=== PATIENT | female | born 1960 | race Caucasian/White ===

== ENCOUNTER 2021-01-23 11:23 | Day surgery (SDCO) | payer OTHER ==
[~2021-01-23 11:23] MED LIST: ABILIFY5 MG PO; ASPIRIN EC81 MG PO; ATARAX25 MG PO; BACLOFEN 10MG T10 MG PO; BENTYL10 MG PO; BUDESONIDE EC3 MG PO; CIPRO500 MG PO; DIAZEPAM 5MG TAB5 MG PO; ETODOLAC500 MG PO; K-DUR20 MEQ PO; LEVAQUIN750 MG PO; MAG-OXIDE 400M400 MG PO; MEDROL 4MG DOSEP4 MG PO; METRONIDAZOLE500 MG PO; MIRTAZAPINE15 M1 PO; PAXIL20 MG PO; PEPCID AC20 MG PO; PERCOCET 5-3251 EACH PO; PREDNISONE5 MG PO; PRILOSEC20 MG PO; PROTONIX 40MG T40 MG PO; REQUIP1 MG PO; TRAZODONE 150M150 MG PO; VITAMIN B-121000 MC1 PO; VOLTAREN **OUT50 MG PO; XANAX0.5 MG PO; ZOFRAN8 MG PO; ZOLOFT100 MG PO
[2021-01-23 11:53] LABS: BASOPHIL 0.6 % (0-2); EOSINOPHIL 3.7 % (0-5); HCT 36.7 % (37.0-47.0); HGB 12.2 g/dl (12.5-16.0); MCH 29.1 pg (25.0-31.0); MCHC 33.2 g/dL (32.0-36.0); MCV 87.6 fL (78.0-100.0); MONOCYTE 5.2 % (0-12); MPV 8.9 fL (6.0-9.5); NRBC 0; PLT 197 K/uL (150-400); RBC 4.19 M/uL (4.20-5.40); RDW 13.2 % (11.5-14.0); WBC 9.9 K/uL (4.0-10.5)
[2021-01-23 12:03] LABS: INR 1.04 (0.9-1.2); PROTHROMBIN TIME 12.9 SECONDS (11.4-13.6)
[2021-01-23 12:09] LABS: ALBUMIN 3.5 g/dL (3.4-5.0); BILIRUBIN - TOTAL 0.3 mg/dL (0.2-1.0); BUN/CREAT RATIO (CALC) 14.3 RATIO; CREATININE 0.77 mg/dL (0.51-0.95); GLOBULIN (CALCULATION) 3.8 g/dL; POTASSIUM 4.5 mmol/L (3.5-5.1); TOTAL PROTEIN 7.3 g/dL (6.4-8.2)
[2021-01-23] MEDS ORDERED: K-DUR20 MEQ PO (17:11)
[2021-01-23] MEDS ORDERED: MAG-OXIDE 400M400 MG PO (17:12)
[2021-01-23] MEDS ORDERED: SODIUM BICARBO325 MG PO (17:13)
[2021-01-23 19:29] LABS: CORONAVIRUS 2019 SARS-COV-2 NEGATIVE (NEGATIVE); INFLUENZA A NAA NEGATIVE (NEGATIVE)
--- NOTE | 2021-01-24 00:30 | NUR ---
PT MEDICATION ABILIFY 5 MG NOT ADMINISTERED NOT LOADED AND AVAILABLE IN [facility].
[2021-01-24 06:35] LABS: HCT 35.9 % (37.0-47.0); HGB 11.9 g/dl (12.5-16.0); MCH 29.2 pg (25.0-31.0); MCHC 33.1 g/dL (32.0-36.0); MCV 88.2 fL (78.0-100.0); MPV 9.2 fL (6.0-9.5); RBC 4.07 M/uL (4.20-5.40); RDW 13.1 % (11.5-14.0); WBC 8.3 K/uL (4.0-10.5)
[2021-01-24 07:03] LABS: BUN/CREAT RATIO (CALC) 16.7 RATIO; CREATININE 0.9 mg/dL (0.51-0.95); POTASSIUM 4.8 mmol/L (3.5-5.1)
[2021-01-24] MEDS ORDERED: HABITROL14 MG TD (12:07)
[2021-01-24] MEDS ORDERED: ASPIRIN EC81 MG PO (12:07)
[2021-03-06] MEDS ORDERED: MELOXICAM15 MG PO (14:28)
[2021-06-10] MEDS ORDERED: MELOXICAM15 MG PO (14:48)
[2021-06-12] MEDS ORDERED: CELECOXIB100 MG PO (17:03)
== END 2021-01-24 12:30 | disposition home or self-care (01) ==
LOC: FER 11:23 → FMS 14:39
PROVIDERS: Emergency Medicine; ADMIT Hospitalist
DX: R07.89 Other chest pain (principal); F17.210 Nicotine dependence, cigarettes, uncomplicated; K50.90 Crohn's disease, unspecified, without complications; D64.9 Anemia, unspecified; K21.9 Gastro-esophageal reflux disease without esophagitis; I10 Essential (primary) hypertension; M19.90 Unspecified osteoarthritis, unspecified site; G89.29 Other chronic pain; M54.9 Dorsalgia, unspecified; M51.36 Other intervertebral disc degeneration, lumbar region; Z79.82 Long term (current) use of aspirin; Z79.899 Other long term (current) drug therapy; Z88.1 Allergy status to other antibiotic agents; Z88.2 Allergy status to sulfonamides; Z90.49 Acquired absence of other specified parts of digestive tract; Z20.822 Contact with and (suspected) exposure to COVID-19
CPT/HCPCS: 36415; 71045; 80048; 80053; 83735; 84484; 85025; 85610; 93005; G0378; J1650; J3475; U0002

== ENCOUNTER 2021-05-08 14:38 | Emergency (ER) | payer OTHER ==
[~2021-05-08 14:38] MED LIST changes: +HABITROL14 MG TD; +MELOXICAM15 MG PO; +SODIUM BICARBO325 MG PO
[2021-05-08 15:16] LABS: BASOPHIL 0.8 % (0-2); EOSINOPHIL 3.2 % (0-5); HCT 38.6 % (37.0-47.0); HGB 12.5 g/dl (12.5-16.0); LYMPHOCYTE 34.5 % (15-48); MCH 28.4 pg (25.0-31.0); MCHC 32.4 g/dL (32.0-36.0); MCV 87.7 fL (78.0-100.0); MONOCYTE 5.4 % (0-12); NEUTROPHIL 55.5 % (41-80); NRBC 0; PLT 182 K/uL (150-400); RDW 13.9 % (11.5-14.0); WBC 11.7 K/uL (4.0-10.5)
[2021-05-08 15:33] LABS: ALBUMIN 3.7 g/dL (3.4-5.0); BILIRUBIN - TOTAL 0.4 mg/dL (0.2-1.0); BUN/CREAT RATIO (CALC) 16.8 RATIO; CREATININE 1.01 mg/dL (0.51-0.95); GLOBULIN (CALCULATION) 3.8 g/dL; INR 1.05 (0.9-1.2); POTASSIUM 4.2 mmol/L (3.5-5.1); PROTHROMBIN TIME 13.1 SECONDS (11.8-13.4); PTT 21.4 SECONDS (24.4-34.7); TOTAL PROTEIN 7.5 g/dL (6.4-8.2)
[2021-06-10] MEDS ORDERED: MELOXICAM15 MG PO (14:48)
== END 2021-05-08 18:25 | disposition home or self-care (01) ==
LOC: FER 14:38
PROVIDERS: Emergency Medicine
DX: R07.89 Other chest pain (principal); N18.9 Chronic kidney disease, unspecified; K21.9 Gastro-esophageal reflux disease without esophagitis; F17.210 Nicotine dependence, cigarettes, uncomplicated; Z90.49 Acquired absence of other specified parts of digestive tract; Z90.710 Acquired absence of both cervix and uterus; Z88.2 Allergy status to sulfonamides; Z88.1 Allergy status to other antibiotic agents
CPT/HCPCS: 36415; 71045; 80053; 84484; 85025; 85610; 85730; 93005; J2270; J2405; J7030

== ENCOUNTER 2021-10-27 16:26 | Emergency (ER) | payer OTHER ==
[~2021-10-27 16:26] MED LIST changes: +CELECOXIB100 MG PO
[2021-10-27 17:13] LABS: BASOPHIL 0.7 % (0-2); EOSINOPHIL 3.9 % (0-5); HCT 38.5 % (37.0-47.0); HGB 12.4 g/dl (12.5-16.0); LYMPHOCYTE 34.6 % (15-48); MCH 26.2 pg (25.0-31.0); MCHC 32.2 g/dL (32.0-36.0); MCV 81.4 fL (78.0-100.0); MONOCYTE 4.7 % (0-12); MPV 8.9 fL (6.0-9.5); NEUTROPHIL 55.8 % (41-80); NRBC 0; PLT 189 K/uL (150-400); RBC 4.73 M/uL (4.20-5.40); WBC 11.5 K/uL (4.0-10.5)
[2021-10-27 17:35] LABS: BUN/CREAT RATIO (CALC) 17.9 RATIO; CREATININE 1.06 mg/dL (0.51-0.95); POTASSIUM 4.3 mmol/L (3.5-5.1)
[2021-10-27 18:49] LABS: CORONAVIRUS 2019 SARS-COV-2 NEGATIVE (NEGATIVE); INFLUENZA A NAA NEGATIVE (NEGATIVE)
[2021-10-27] MEDS ORDERED: AZITHROMYCIN250 MG PO (19:48)
[2021-10-27] MEDS ORDERED: PREDNISONE 20MG20 MG PO (19:48)
== END 2021-10-27 20:30 | disposition home or self-care (01) ==
LOC: FER 16:26
PROVIDERS: Internal Medicine
DX: J98.8 Other specified respiratory disorders (principal); R07.89 Other chest pain; E11.9 Type 2 diabetes mellitus without complications; Z79.84 Long term (current) use of oral hypoglycemic drugs; F17.210 Nicotine dependence, cigarettes, uncomplicated; Z20.822 Contact with and (suspected) exposure to COVID-19
CPT/HCPCS: 36415; 71045; 80048; 84484; 85025; 93005; J2270; J2405; J2930; U0002

== ENCOUNTER 2022-04-02 11:50 | Emergency (ER) | payer OTHER ==
[~2022-04-02 11:50] MED LIST changes: +AZITHROMYCIN250 MG PO; +PREDNISONE 20MG20 MG PO
== END 2022-04-02 13:34 | disposition left against medical advice (07) ==
LOC: FER 11:50
DX: M25.552 Pain in left hip (principal); E11.22 Type 2 diabetes mellitus with diabetic chronic kidney disease; N18.9 Chronic kidney disease, unspecified; F17.210 Nicotine dependence, cigarettes, uncomplicated; Z53.29 Procedure and treatment not carried out because of patient's decision for other reasons; Z88.1 Allergy status to other antibiotic agents; Z88.2 Allergy status to sulfonamides; Z79.84 Long term (current) use of oral hypoglycemic drugs; W06.XXXA Fall from bed, initial encounter
CPT/HCPCS: 73502

== ENCOUNTER 2022-06-07 18:11 | Emergency (ER) | payer OTHER | END 2022-06-07 19:54 | disposition left against medical advice (07) | LOC: FER 18:11 | DX: M54.6 Pain in thoracic spine (principal); Z53.29 Procedure and treatment not carried out because of patient's decision for other reasons | CPT/HCPCS: 99281 ==